=== PATIENT | female | born 1995 | race Two or more races ===

== ENCOUNTER 2016-09-03 04:57 | Emergency (ER) | payer SELFPAY ==
[~2016-09-03] VITALS: Ht 172.7 cm; Wt 63.5 kg
[2016-09-03] MEDS ORDERED: ONDANSETRON 4 MG TAB.RAPDIS ONE (05:11)
[2016-09-03] MEDS ORDERED: ONDANSETRON 4 MG TAB.RAPDIS SL ONE (05:30)
[2016-09-03 07:47] VITALS: BP 98/56
== END 2016-09-03 07:48 | disposition home or self-care (01) ==
LOC: ER 05:01
DX: R11.10 Vomiting, unspecified (principal); F10.129 Alcohol abuse with intoxication, unspecified; K29.20 Alcoholic gastritis without bleeding; R73.09 Other abnormal glucose
CPT/HCPCS: 82962; 99283; A4606; Q0162; Z7610